=== PATIENT | female | born 1990 | race Two or more races ===

== ENCOUNTER 2016-06-21 14:07 | Outpatient (CLI) | payer MEDICAID ==
[2016-06-21 15:16] LABS: PH,URINE 6.5 (5.0-8.0); URINE BILIRUBIN NEGATIVE (NEGATIVE); URINE BLOOD NEGATIVE (NEGATIVE); URINE GLUCOSE (UA) NEGATIVE (NEGATIVE); URINE LEUKOCYTE ESTERASE NEGATIVE (NEGATIVE); URINE NITRITE NEGATIVE (NEGATIVE); URINE PROTEIN NEGATIVE (NEGATIVE); URINE UROBILINOGEN NORMAL (0-1 mg/dl)
[2016-06-21 15:18] LABS: URINE APPEARANCE CLEAR; URINE COLOR YELLOW
[2016-06-21] MEDS ORDERED: TERBUTALINE SULFATE 1 MG/ML VIAL SUB-Q ONE (15:54)
[2016-06-21] MEDS ORDERED: LACTATED RINGERS 1,000 ML IV SCH ×3 (16:00→17:30)
[2016-06-21] MEDS ORDERED: IV START KIT ONE (16:02)
[2016-06-21] MEDS ORDERED: LACTATED RINGERS 1,000 ML ONE (16:02)
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
== END 2016-06-21 18:54 | disposition home or self-care (01) ==
LOC: FBCOUT 14:07 → FBC 14:07 → FBCOUT 18:54
PROVIDERS: ATTEND Obstetrics & Gynecology
DX: O47.03 False labor before 37 completed weeks of gestation, third trimester (principal); Z3A.33 33 weeks gestation of pregnancy
CPT/HCPCS: 96360; 96361; 81003; 59025; 81002; J3105; J7120 ×2; G0463

== ENCOUNTER 2016-06-29 18:05 | Outpatient (CLI) | payer MEDICAID ==
--- NOTE | 2016-06-29 18:44 | PDOC36 ---
Provider Note Subject: Triage note Note: Pt was in [facility] last week with contractions and was given IV and Terbutaline. Pt c/o ctx q15-25 FHT: 130's, mod leo, no decels [place]:ctx q4-5 min plan: chk fFN chk u/a terbutaline PO hydration
[2016-06-29] MEDS ORDERED: TERBUTALINE SULFATE 1 MG/ML VIAL SUB-Q ONE (19:00)
[2016-06-29 19:22] VITALS: BMI 29.2
[2016-06-29 19:56] LABS: PH,URINE 6.5 (5.0-8.0); SPECIFIC GRAVITY 1.015 (1.001-1.030); URINE BILIRUBIN NEGATIVE (NEGATIVE); URINE BLOOD NEGATIVE (NEGATIVE); URINE GLUCOSE (UA) NEGATIVE (NEGATIVE); URINE LEUKOCYTE ESTERASE NEGATIVE (NEGATIVE); URINE NITRITE NEGATIVE (NEGATIVE); URINE PROTEIN NEGATIVE (NEGATIVE); URINE UROBILINOGEN NORMAL (0-1 mg/dl)
[2016-06-29 19:57] LABS: URINE APPEARANCE CLEAR; URINE COLOR YELLOW
== END 2016-06-29 20:45 | disposition home or self-care (01) ==
LOC: FBCOUT 18:05 → FBC 18:08 → FBCOUT 20:45
PROVIDERS: ATTEND Obstetrics & Gynecology
DX: O47.9 False labor, unspecified (principal); Z3A.00 Weeks of gestation of pregnancy not specified
CPT/HCPCS: 96372; 82731; 81003; 59025; J3105; G0463

== ENCOUNTER 2016-07-22 00:22 | Outpatient (CLI) | payer MEDICAID ==
[2016-07-22 00:37] VITALS: BMI 29.2
== END 2016-07-22 02:20 | disposition home or self-care (01) ==
LOC: FBC 00:22 → FBCOUT 00:22
PROVIDERS: ATTEND Obstetrics & Gynecology
DX: O47.9 False labor, unspecified (principal); Z3A.00 Weeks of gestation of pregnancy not specified
CPT/HCPCS: 59025; 81002; G0463

== ENCOUNTER 2016-07-29 12:32 | Outpatient (CLI) | payer MEDICAID ==
[2016-07-29 13:20] VITALS: BMI 29.8
== END 2016-07-29 16:03 | disposition home or self-care (01) ==
LOC: UNDOADMIN 12:32 → FBCOUT 12:32 → FBC 12:32 → FBCOUT 16:03 → UNDODISIN 16:03 → EDSTATUS 08-07 08:20
PROVIDERS: ATTEND Obstetrics & Gynecology
DX: O47.9 False labor, unspecified (principal); Z3A.00 Weeks of gestation of pregnancy not specified
CPT/HCPCS: 59025; 81002; G0463

== ENCOUNTER 2016-07-30 10:28 | Inpatient (IN) | payer MEDICAID ==
[2016-07-30] MEDS ORDERED: OXYTOCIN IN LR 500 ML IV ONE ×2 (13:54→14:09)
[2016-07-30] MEDS ORDERED: PUMP TUBING ONE (14:09)
[2016-07-30] MEDS ORDERED: LIDOCAINE 1% (PRES FREE) 30 ML VIAL ONE (14:09)
[2016-07-30] MEDS ORDERED: MINERAL OIL 25 ML BOT ONE (14:09)
[2016-07-30] MEDS ORDERED: LIDOCAINE Viscous 2% 15 ML UDCUP ONE (14:09)
[2016-07-30] MEDS ORDERED: OXYTOCIN 10 UNITS/ML VIAL ONE (14:09)
[2016-07-30] MEDS ORDERED: SODIUM CHLORIDE 0.9% FLUSH 10 ML ONE (14:10)
[2016-07-30] MEDS ORDERED: IV START KIT ONE (14:10)
[2016-07-30 15:31] LABS: HEMATOCRIT 32.5 % (37.0-47.0); HEMOGLOBIN 11.4 gm/l (12.0-16.0); MEAN CELL VOLUME 84.9 fl (81.0-99.0); MEAN CORPUSCULAR HEMOGLOBIN 29.8 pg (27.0-31.0); MEAN CORPUSCULAR HGB CONC 35.1 g/dl (33.0-37.0); RED CELL DISTRIBUTION WIDTH 13.2 % (11.5-14.5)
--- NOTE | 2016-07-30 15:31 | PCMAN ---
OB Admission Note - History : 3 Term: 2 : 0 Abortions (S&E): 0 Livin Gestational Age (weeks): 38 Days (#/7): 6 Admit Cervical Dilation:: 6 Admit Cervical Effacement (%):: 80 (vertex firmly applied to midplane cervix.) Admit Station:: -2 Admit Presentaton:: cephalic Membrane Status: Intact Labor Onset (Date): 07/30/16 Labor Onset (Time): 13:00 Contractions: Yes Contraction Frequency:: q4min lasting 1.5-2 min Heart Rate:: 130 (excellent accels to 160's) Status:: good EFW:: 7.5-8 lbs - Labs Blood Type: O (+) positive Hct/Hgb:: 10.7 Rubella Status: Immune GBS Status: Negative Abnormal Labs: None Other Labs:: pap neg. urine culture and ua's neg - Review of Systems no ROM Alittle bloody show last night. - Physical Exam General: Mild Distress Psych/Mental Status: Mood/Affect Appropriate Neurological: Grossly Intact, Alert, Oriented x 4, Normal Speech Lungs: Clear to Auscultation Bilaterally Cardiovascular: Regular Rate and Rhythm Abdomen: Normal Bowel Sounds Genitourinary: Normal Female Genitalia Extremities: Full ROM Skin: Normal Color, Warm, Dry - Problems (1) Active labor at term Status: Acute Code: [id number]/Plan: Pt has had a slow prodromal early labor for several days, getting worse after her exam in the office yesterday. She is now showing some cervical change compared to her exam by the RN earlier. She is being admitted for active management. She is hoping for natural childbirth. So far she is handling her labor very well, barely breathing with the contractions.
--- NOTE | 2016-07-30 17:17 | PDOC36 ---
Provider Note Subject: AROM Note: Griselida's contrx spaced out a bit, but still strong when they occur. Mostly felt low and in front. Pt agrees with AROM. O: Contrx palpate strong and last well over a minute. FH 130's, category 1 VE cervix soft, more posterior, but 7-8 stretchy Vertex now -3 and loosely applied. AROM clear fluid Imp: Active labor at 38w6d Plan: Expectant.
[2016-07-30] MEDS ORDERED: BUTORPHANOL TARTRATE 1 MG/ML VIAL IV PRN (18:21)
[2016-07-30] MEDS ORDERED: OXYCODONE/ACETAMINOPHEN 5/325 MG TABLET PO PRN (19:20)
[2016-07-30] MEDS ORDERED: LACTATED RINGERS 1,000 ML IV PRN (19:20)
[2016-07-30] MEDS ORDERED: OXYCODONE HCL 5 MG TABLET PO PRN (19:20)
[2016-07-30] MEDS ORDERED: SENNOSIDES 8.6 MG TABLET PO PRN (19:20)
[2016-07-30] MEDS ORDERED: ACETAMINOPHEN 325 MG TABLET PO PRN (19:20)
[2016-07-30] MEDS ORDERED: LANOLIN 50 APPLIC/7G TUBE TP PRN (19:20)
[2016-07-30] MEDS ORDERED: MAGNESIUM HYDROXIDE 30 ML UDCUP PO PRN (19:20)
[2016-07-30] MEDS ORDERED: DIPHTH,PERTUSS(ACELL),TET VAC 0.5 ML VIAL IM V ONE (19:20)
[2016-07-30] MEDS ORDERED: MEASLES,MUMPS&RUBELLA VACCINE 0.5 ML VIAL SUB-Q V ONE (19:20)
[2016-07-30] MEDS ORDERED: BENZOCAINE/MENTHOL 60 APPLIC/BOT TP PRN (19:20)
[2016-07-30] MEDS: IBUPROFEN 800 MG TABLET PO PRN (20:29)
--- NOTE | 2016-07-31 01:08 | PCMDEL ---
Delivery Note - Labor 1st stage (hr/min):: [id number] 2nd stage (hr/min):: 1min 3rd stage (hr/min):: 7min Total (hr/min):: [id number] Pushed (hr/min):: 1min - Delivery Delivery (Date): 07/30/16 Delivery (Time): 18:43 Gender: Female Weight: 8 lb 6 oz Length: 1 ft 9 in Presentation: Cephalic Position: OA Umbilical Cord: 3 Vessel Delayed Cord Clamping:: > 3 min 1 Minute Total: 9 5 Minute Total: 9 Placenta:: Complete EBL:: 250cc Perineum:: intact Suture:: none Anesthesia/Meds:: Stadol given approx 20min before the . Length ROM:: 2h Comments:: Once pt got out of bed and sat on the commode, the labor intensified. Exam by RN was 6cm with baby still high. Pt was requesting something for the pain. Stadol was given. Pt relaxed in bed then suddenly had a strong urge to push. By the time I got back to the room, the top of the baby's head had delivered. Face delivered gently, followed by shoulders once pt was able to lift her left leg. Vigorous baby girl placed directly on the mom's abdomen, dried and evaluated. Once cord quit pulsating, it was clamped and then cut by FoB. 2art/1 vein. Placenta delivered shortly thereafter with small gush of blood.
[2016-07-31] MEDS: IBUPROFEN 800 MG TABLET PO PRN ×4 (03:00→21:04)
[2016-07-31 06:39] LABS: HEMATOCRIT 28.2 % (37.0-47.0); HEMOGLOBIN 9.8 gm/l (12.0-16.0)
[2016-07-31] MEDS ORDERED: PNEUMOCOCCAL 23-VAL P-SAC VAC 0.5 ML VIAL IM V ONE (07:19)
[2016-07-31] MEDS: DOCUSATE SODIUM 100 MG CAPSULE PO PRN (08:48)
--- NOTE | 2016-07-31 09:15 | PDOC39B ---
Hospital Course: ADMIT DATE: 07/30/16 DISCHARGE DATE: 07/31/16 ADMISSION DIAGNOSES: Labor at term PROCEDURES: Spontaneous vaginal delivery HISTORY OF PRESENT ILLNESS: 26 year old G3 T2 L2 at 38 weeks 6 days presenting with advanced cervical dilation but mild labor. HOSPITAL COURSE: The patient was admitted and showed gradual progress. Labor was accelerated by AROM. Pt had a spontaneous vaginal without complication. By day of discharge the patient is ambulating, eating, voiding, and passing flatus without difficulty. Pain is controlled and lochia is appropriate. She is despite inverted nipples. - Physical Exam Vital Signs: Temp Pulse Resp BP Pulse Ox 98.6 F 85 14 98/55 07/31/16 02:52 07/31/16 02:52 07/31/16 02:52 07/31/16 02:52 General: Afebrile Psych/Mental Status: Mood/Affect Appropriate, Bonding Well Neurological: Oriented x 4, Normal Speech Lungs: Clear to Auscultation Bilaterally Cardiovascular: Regular Rate and Rhythm Fundus: Firm, Below Umbilicus Abdomen: Normal Bowel Sounds Lochia: Light Skin: Normal Color, Warm, Dry - Discharge Diagnosis (1) Active labor at term Status: AcuteAssessment/Plan: Pt has had a slow prodromal early labor for several days, getting worse after her exam in the office yesterday. She is now showing some cervical change compared to her exam by the RN earlier. She is being admitted for active management. She is hoping for natural childbirth. So far she is handling her labor very well, barely breathing with the contractions. Emily had a spontaneous without complication on 07/30/16. - Discharge Plan Condition: Good Disposition: Home Prescriptions: Ibuprofen [IBUPROFEN 800 MG TABLET (SHF)] 800 mg PO Q6H PRN #100 tablet PRN Reason: Pain (Mild) Oxycodone HCl/Acetaminophen [PERCOCET 5/325 MG TABLET (SHF)] 1 - 2 tab PO Q4H PRN #30 tablet PRN Reason: Pain (Moderate) Follow-Up: Melly Mancilla MD [Staff Physician] - In 6 weeks
--- NOTE | 2016-08-01 06:56 | PDOC44 ---
- Subjective Day: 2 (no complaints) Reports Flatus, Reports Pain Tolerable, Reports , Reports Lochia Light, Reports Tolerating Regular Diet, Denies Nausea, Denies Vomiting, Denies Fever - Objective Temp Pulse Resp BP Pulse Ox 98.5 F 72 16 90/52 08/01/16 03:14 08/01/16 03:14 08/01/16 03:14 07/31/16 21:00 Current Medications Generic Name Dose Route Start Last Admin Trade Name Freq PRN Reason Stop Dose Admin Acetaminophen 325 - 650 mg 07/30/16 19:20 Tylenol PO Q4H PRN Pain (Mild) Benzocaine/Menthol 1 applic 07/30/16 19:20 Dermoplast TP PRN PRN Patient Comfort Docusate Sodium 100 mg 07/30/16 19:20 07/31/16 08:48 Colace PO 100 mg DAILY PRN Administration Comfort Emollient Ointment 1 applic 07/30/16 19:20 [id number] TP PRN PRN sore nipples Lactated Ringer's 1,000 mls @ 100 mls/hr 07/30/16 19:20 Lactated Ringers IV .Q10H PRN Titrate per clinical situation Ibuprofen 800 mg 07/30/16 19:20 07/31/16 21:04 Motrin PO 800 mg Q6H PRN Administration Pain (Mild) Magnesium Hydroxide 30 ml 07/30/16 19:20 Milk Of Magnesia PO BEDTIME PRN Constipation Oxycodone HCl 5 - 10 mg 07/30/16 19:20 Roxicodone PO Q3H PRN Pain (Severe) Oxycodone/Acetaminophen 1 - 2 tab 07/30/16 19:20 Percocet 5/325 PO Q4H PRN Pain (Moderate) Senna 17.2 mg 07/30/16 19:20 Senokot PO BEDTIME PRN Comfort Sodium Chloride 10 ml 07/30/16 19:20 Normal Saline 10ml Flush IV PRN PRN IV Flush Sodium Chloride 10 ml 07/31/16 01:00 07/31/16 11:36 Normal Saline 10ml Flush IV Not Given Q8HR CHASE - Physical Exam General: Afebrile, No Acute Distress Psych/Mental Status: Mood/Affect Appropriate, Judgment/Insight Intact, Bonding Well Breast: Soft, Skin intact, Nipples Intact, No Tenderness, No Erythema, No Engorged Fundus: Firm, Midline, Below Umbilicus, Other (nontender) Genitourinary: Other (voiding without difficulty) Extremities: No Tenderness Disposition: Other (home today. dr murphy already did discharge.)
[2016-08-01 08:03] VITALS: BP 103/59
[2016-08-01] MEDS: DOCUSATE SODIUM 100 MG CAPSULE PO PRN (08:10)
[2016-08-01] MEDS: IBUPROFEN 800 MG TABLET PO PRN (08:23)
== END 2016-08-01 10:10 | disposition home or self-care (01) | DRG 775 ==
LOC: FBCOUT 10:28 → FBC 10:28 → FBCOUT 13:22
PROVIDERS: ADMIT Obstetrics & Gynecology; ATTEND Obstetrics & Gynecology
PROC: 10E0XZZ Delivery of Products of Conception, External Approach (ICD-10-PCS; principal; 2016-07-30)
PROC: 10907ZC Drainage of Amniotic Fluid, Therapeutic from Products of Conception, Via Natural or Artificial Opening (ICD-10-PCS; 2016-07-30)
DX: O63.0 Prolonged first stage (of labor) (principal); Z37.0 Single live birth; Z3A.38 38 weeks gestation of pregnancy